=== PATIENT | male | born 2005 | race Caucasian/White ===

== ENCOUNTER 2023-09-30 00:15 | Emergency (ER) | payer OTHER, SELFPAY ==
[2023-09-30 00:17] VITALS: BP 135/77; PULSE 68; RESP 18; TEMP 36.9; O2SAT 97; BMI 34.5
--- NOTE | 2023-09-30 00:31 | XR_ITS ---
PROCEDURE INFORMATION: Exam: XR Right Shoulder Exam date and time: 09/30/2023 12:36 AM Age: 18 years old Clinical indication: Injury or trauma; Fall; Blunt trauma (contusions or hematomas); Shoulder; Right; Additional info: Fall, shoulder pain TECHNIQUE: Imaging protocol: Radiologic exam of the right shoulder. Views: 2 or more views. Total images: 3 COMPARISON: CR Ribs R 09/30/2023 12:31 AM FINDINGS: Bones/joints: No acute fracture, joint dislocation, or AC joint separation. Unremarkable joint spaces. Subacromial distance is preserved. No concerning bone lesions. Soft tissues: Unremarkable soft tissues. IMPRESSION: Negative right shoulder.
--- NOTE | 2023-09-30 00:31 | XR_ITS ---
PROCEDURE INFORMATION: Exam: XR Right Ribs with PA Chest Exam date and time: 09/30/2023 12:31 AM Age: 18 years old Clinical indication: Injury or trauma; Fall; Rib area; Blunt trauma (contusions or hematomas); Additional info: Fall on mid posterior ribs TECHNIQUE: Imaging protocol: Radiologic exam of the right ribs with PA chest. Views: 3 views Total images: 4 COMPARISON: No relevant prior studies available. FINDINGS: Lungs: Unremarkable. No consolidation. No pulmonary vascular congestion or edema. Pleural spaces: Unremarkable. No pleural effusion. No pneumothorax. Heart/Mediastinum: Unremarkable. No cardiomegaly. No mediastinal widening or hilar enlargement. Bones/joints: No acute right rib fracture. No concerning bone lesions. Costovertebral junctions are preserved. IMPRESSION: 1. Negative right ribs. 2. No radiographically acute cardiopulmonary process.
[2023-09-30] MEDS: ACETAMINOPHEN 500MG TAB 1000 MG PO (00:40)
[2023-09-30] MEDS: LIDOCAINE 5% TRANSDERMAL PATCH 1 EACH TP (00:40)
[2023-09-30] MEDS: KETOROLAC 30MG/ML VIAL 15 MG IM (00:41)
--- NOTE | 2023-09-30 00:57 | ED_ITS ---
Discharge Plan Disposition Patient Disposition: Home, Self-Care Condition: Good Prescriptions Prescriptions: New lidocaine 5 % adhesive patch,medicated 1 patch topical DAILY Qty: 15 0RF Rx Instructions: Remove patch after 12 hours, leave off for 12 hours before using a new patch Referrals Follow up/Referrals: [place], [facility] [Primary Care Provider] - See instructions Activity Restrictions/Add. Instructions Additional Instructions/Restrictions: You were evaluated in the ER. You are appropriate for discharge at this time. Take Tylenol, ibuprofen if needed for pain at home. Do not exceed the recommended doses on the bottles. Use the prescribed lidocaine patch as directed. Do not leave these on for more than 12 hours at a time. Make an appointment with your primary care physician for reevaluation in a few days. Return to the ER with new, worsening, or otherwise concerning symptoms Clinical Impressions Clinical Impression: Acute pain of right shoulder, Acute right-sided thoracic back pain Print Language Print Language: Iraqi Discharge ED Provider: Dean Hanson General Adult HPI General Chief complaint: Extremity Injury, Upper Stated complaint: AO 2315 shoulder pain Time Seen by Provider: 09/30/23 00:21 Mode of Arrival: Ambulatory Source of Information: Patient Limitations: No Limitations Description of Symptoms (Recalled from ER Triage Doc. by RN): Pt ambulatory to ED with c/o right shoulder pain after hitting it on his nightstand around 2315 tonight. Pt reports he was turning over in bed and hit his shoulder blade on the nightstand. Pt reports he cant raise or move his right arm or hand since the incident. Pt reports he has had injuries to his right shoulder before. History of Present Illness HPI narrative: 18-year-old male presents to the ER for complaints of right shoulder/right thoracic back pain. Patient states he hit this area on the corner of a nightstand approximately 1 hour prior to arrival. Patient reports he was turning over and hit his shoulder blade on the nightstand. Patient reports not being able to move or raise his right arm since the incident, however he is able to hold it up when I elevate it for him. Patient reports he has not taken any medication since the incident. He denies chest pain, difficulty breathing, pain in the head or neck, or other injuries. Related Data Previous Rx's ?Medication ?Instructions ?Recorded lidocaine 5 % topical patch 1 patch topical DAILY #15 ea 09/30/23 Allergies Allergy/AdvReac Type Severity Reaction Status Date / Time peanut Allergy Verified 09/30/23 00:30 [facility] Disclaimer: The information contained in this section may have been updated after the patient was seen, as this information can be updated by other users. Medical History (Updated 09/30/23 @ 01:20 by Dean Hanson MD) Hypertension Social History Smoking Status: Current every day smoker alcohol intake: never current occupational status: other Travel in the last 8 weeks: None ROS Obtained: Yes All systems reviewed & no additional complaints except as documented Musculoskeletal Musculoskeletal: Reports arthralgias and Reports back pain Comments: Difficulty moving right shoulder Physical Exam General General appearance: alert and in no apparent distress Head Head exam: atraumatic and normocephalic Eye Eye exam: Present PERRL and EOMI ENT ENT exam: Present mucous membranes moist Neck Neck exam: Present normal inspection and full ROM Chest Chest inspection: Present symmetric chest wall rise Respiratory Respiratory exam: Present normal lung sounds bilaterally; Absent respiratory distress, wheezes or stridor Cardiovascular Cardiovascular exam: Present regular rate and normal rhythm Extremities Exam Extremities exam: Present full ROM and tenderness (Right shoulder, no deformity or bruising, resistance intact) Back Exam Back exam: Present tenderness (Tenderness to palpation of the right thoracic back, see image) Back 1 view image: 2 1. Area of maximal tenderness, no deformity, swelling, bruising, or other signs of injury Neurological Exam Neurological exam: Present alert and oriented X3; Absent motor sensory deficit (Patient is refusing to raise the right arm, however when I raise it for him he is able to hold it up. Full chief psychologist strength in the right hand. Sensation intact.) Psychiatric Psychiatric exam: Present normal affect and normal mood Skin Skin exam: Present warm and dry Medical Decision Making Mert Inquiry Pt receiving controlled substance: No Vital Signs: 09/30/23 00:17 Temperature 98.5 F Temperature Source Oral Pulse Rate [Right Radial] 68 Respiratory Rate 18 Blood Pressure [Left Arm] 135/77 Blood Pressure Mean [Left Arm] 96 Blood Pressure Source [Left Arm] Automatic Cuff Blood Pressure Position [Left Arm] Sitting 02 Sat by Pulse Oximetry 97 Oxygen Delivery Method Room Air Orders (Tests/Meds): ED MEDICATIONS Discontinued Medications Generic Name Dose Route Start Last Admin Trade Name Freq PRN Reason Stop Dose Admin Acetaminophen 1,000 mg 09/30/23 00:31 09/30/23 00:40 Acetaminophen 500mg Tab PO 09/30/23 00:32 1,000 mg ONCE ONE Administration Ketorolac Tromethamine 15 mg 09/30/23 00:31 09/30/23 00:41 Ketorolac 30mg/Ml Vial IV 09/30/23 00:32 Not Given ONCE ONE Ketorolac Tromethamine 15 mg 09/30/23 00:35 09/30/23 00:41 Ketorolac 30mg/Ml Vial IM 09/30/23 00:36 15 mg ONCE ONE Administration Lidocaine 1 each 09/30/23 00:31 09/30/23 00:40 Lidocaine 5% Transdermal Patch TP 09/30/23 00:32 1 each ONCE ONE Administration ORDERS Category Date Time Status Shoulder XR right miminum 2 views [XR shoulder RT min Exams 09/30/23 00:31 Taken 2V] Stat XR ribs RT min 3V w CXR1V Stat Exams 09/30/23 00:31 Taken Medical Decision Narrative: In summary, this 18-year-old male presents to the emergency department today with right shoulder/right thoracic back pain. On initial evaluation patient is hemodynamically stable, afebrile, patient has tenderness to palpation along the medial aspect of his right shoulder blade in the mid thoracic region without deformity, bruising, or step-off. There is no crepitus. Patient is able to take full, deep breaths. Patient has tenderness over his right shoulder without findings of injury on exam. He claims he is not able to move the arm but is able to keep it up at shoulder level when I raise it there myself. He also has strength and resistance intact as well as sensation. Differential diagnosis includes but is not limited to rib fracture, other bony injury, dislocation, considered possibility of neuropraxia, rotator cuff injury, muscle spasm. Based on these concerns, I ordered x-ray imaging of right ribs, right shoulder. Patient received Tylenol, Toradol, lidocaine patch. I personally interpreted x-rays and do not appreciate acute osseous abnormality, no acute rib fracture, no acute intrathoracic abnormality other personal interpretation. See radiology read for final interpretation. On reassessment patient has had improvement of symptoms. He is now able to independently fully range the right shoulder, right arm. He continues to not have any neurologic deficits. He is appropriate for discharge. I prescribed lidocaine patches for outpatient management. Patient was given instructions on symptomatic management, follow up instructions, and return precautions for the emergency department. Patient indicated understanding and was discharged in stable condition. Critical Care Critical Care Time Critical Care Time: No
[2023-09-30 01:27] VITALS: BP 126/80; PULSE 64; RESP 18; TEMP 36.9; O2SAT 97
== END 2023-09-30 01:27 | disposition home or self-care (01) ==
PROVIDERS: Emergency Provider Emergency Medicine; PCP Counselor Mental Health
DX: M25.511 Pain in right shoulder (principal); M54.6 Pain in thoracic spine; W22.8XXA Striking against or struck by other objects, initial encounter
CPT/HCPCS: 71101; 73030; 96372; 96374; 99284; J1885